=== PATIENT | female | born 1980 | race Caucasian/White ===

== ENCOUNTER 2022-06-16 09:17 | Emergency (ER) | payer BC ==
[~2022-06-16] VITALS: Ht 157.5 cm; Wt 74.4 kg
[2022-06-16 09:25] VITALS: BP 127/78
--- NOTE | 2022-06-16 10:38 | NUR ---
Pt bib bls for sudden fatigue and chest pain while at rest. Chest pain is pressure, 6/10, radiates from center to left side of chest, intermittent, nothing helps or lessens pain. Pt is was seen at [facility] yesterday, dc'd with bladder infection. Pt is a/o x 4, vss, no ss of acute distress, breathing equal and unlabored, speech clear. Pt on monitor.
[2022-06-16 11:19] LABS: BASOPHILS % (AUTO) 0.7 % (0.0-2.0); EOSINOPHILS % (AUTO) 0.7 % (0.0-4.0); HEMATOCRIT 30.4 % (36-48); HEMOGLOBIN 9.4 g/dL (12.0-16.0); LYMPHOCYTES # (AUTO) 1.2 K/uL (2.5-16.5); LYMPHOCYTES % (AUTO) 22.9 % (20.5-51.1); MEAN CORPUSCULAR HEMOGLOBIN 20 pg (27-31); MEAN CORPUSCULAR HGB CONC 31 g/dL (33-37); MEAN CORPUSCULAR VOLUME 62.8 fL (80-94); MONOCYTES # (AUTO) 0.5 K/uL (0.8-1.0); MONOCYTES % (AUTO) 8.9 % (1.7-9.3); NEUTROPHILS # (AUTO) 3.6 K/uL (1.8-7.7); NEUTROPHILS % (AUTO) 66.8 % (42.2-75.2); PLATELET COUNT (AUTO) 480 K/uL (140-450); RED BLOOD CELL COUNT(AUTO) 4.83 MIL/uL (4.20-5.40); RED CELL DISTRIBUTION WIDTH 18.4 % (11.6-13.7); WHITE BLOOD COUNT (AUTO) 5.4 K/uL (4.8-10.8)
[2022-06-16 11:47] LABS: ALBUMIN 4.2 g/dL (3.4-5.0); ANION GAP 14.2 (8-16); CARBON DIOXIDE 24.4 mmol/L (21-32); CREATININE 0.8 mg/dL (0.6-1.3); POTASSIUM 3.6 mmol/L (3.5-5.1); TOTAL BILIRUBIN 0.4 mg/dL (0.0-1.0)
[2022-06-16 11:59] LABS: LIPASE 82 U/L (73-393); THYROID STIMULATING HORMONE 2.07 uIU/mL (0.34-3.74)
--- NOTE | 2022-06-16 12:57 | NUR ---
URINE WALKED TO LAB
[2022-06-16 14:10] VITALS: BP 126/83
--- NOTE | 2022-06-16 14:11 | NUR ---
Patient discharged with v/s stable. Written and verbal after care instructions given and explained. Patient verbalized understanding. Ambulatory with steady gait. All questions addressed prior to discharge. Advised to follow up with PMD.
== END 2022-06-16 14:09 | disposition home or self-care (01) ==
LOC: MED 09:17
DX: R00.0 Tachycardia, unspecified (principal); D50.9 Iron deficiency anemia, unspecified; E03.9 Hypothyroidism, unspecified; E28.2 Polycystic ovarian syndrome; D35.2 Benign neoplasm of pituitary gland; K21.9 Gastro-esophageal reflux disease without esophagitis; E78.5 Hyperlipidemia, unspecified
CPT/HCPCS: 36415; 71045; 80053; 81025; 83690; 83880; 84443; 84484; 85025; 93005; 99285